=== PATIENT | female | born 1950 | race Caucasian/White ===

== ENCOUNTER 2019-02-22 10:50 | Emergency (ER) | payer MEDICAID, MEDICARE ==
[~2019-02-22] VITALS: Ht 170.2 cm; Wt 65.0 kg
[~2019-02-22 10:50] MED LIST: PENI500T2 PO
--- NOTE | 2019-02-22 11:16 | NUR ---
Patient in xray
[2019-02-22] MEDS ORDERED: ketorolac trometh inj. 60 MG/2 ML VIAL IM ONE (12:15)
[2019-02-22] MEDS ORDERED: morphine 4 MG/ML inj SYRINge IM ONE (12:15)
[2019-02-22] MEDS ORDERED: ondansetron 4mg rapidly disintigrating tab PO ONE (12:15)
--- NOTE | 2019-02-22 12:15 | NUR ---
Patient's family at bedside.
[2019-02-22 12:50] VITALS: BP 144/60
[2019-02-22] MEDS ORDERED: BISA-78 PO (13:38)
[2019-02-22] MEDS ORDERED: acetaminophen 325mg tablet PO ONE (13:40)
--- NOTE | 2019-02-22 13:49 | NUR ---
Patient sitting up in bed and and dressing by self.
== END 2019-02-22 13:54 | disposition home or self-care (01) ==
LOC: ER 10:51
DX: M25.552 Pain in left hip (principal); M25.551 Pain in right hip; R11.10 Vomiting, unspecified; G89.29 Other chronic pain; Z90.710 Acquired absence of both cervix and uterus; Z98.890 Other specified postprocedural states; Z88.2 Allergy status to sulfonamides; Z88.1 Allergy status to other antibiotic agents; Z88.8 Allergy status to other drugs, medicaments and biological substances; Z79.899 Other long term (current) drug therapy
CPT/HCPCS: 73502; 96372; 99284; J1885; J2270

== ENCOUNTER 2019-02-23 23:17 | Inpatient (IN) | payer MEDICARE ==
[~2019-02-23] VITALS: Ht 170.2 cm; Wt 65.0 kg
[~2019-02-23 23:17] MED LIST changes: +BISA-78 PO
[2019-02-24 00:36] LABS: BASOPHILS % (AUTO) 0.1 % (0-1); EOSINOPHILS % (AUTO) 0 % (0-6); HEMATOCRIT 44.1 % (35.0-45.0); HEMOGLOBIN 14.9 g/dl (12.0-16.0); LYMPHOCYTES # (AUTO) 0.4 X10'3 (1.1-4.8); LYMPHOCYTES % (AUTO) 3.1 % (21-51); MEAN CORPUSCULAR HEMOGLOBIN 30.5 PG (27.0-31.0); MEAN CORPUSCULAR HGB CONC 33.7 g/dL (33.0-36.5); MEAN CORPUSCULAR VOLUME 90.5 FL (78-98); MEAN PLATELET VOLUME 9.4 FL (7.4-10.4); MONOCYTES # (AUTO) 0.7 X10'3 (0-0.9); MONOCYTES % (AUTO) 5.4 % (2-12); NEUTROPHILS # (AUTO) 11.7 X10'3 (1.8-7.7); NEUTROPHILS % (AUTO) 91.4 % (42-75); PLATELET COUNT 115 X10'3 (140-440); RED BLOOD COUNT 4.87 X10'6 (4.20-5.60); RED CELL DISTRIBUTION WIDTH 13.7 % (11.5-14.5); WHITE BLOOD COUNT 12.8 X10'3 (4.5-11.0)
[2019-02-24 00:52] LABS: ALANINE AMINOTRANSFERASE 209 U/L (12-78); ALBUMIN 3.2 G/DL (3.4-5.0); ALBUMIN/GLOBULIN RATIO 0.8 (1.1-1.5); ALKALINE PHOSPHATASE 156 IU/L (46-116); ANION GAP 12 (8-16); ASPARTATE AMINO TRANSFERASE 125 U/L (10-37); BILIRUBIN,TOTAL 0.7 MG/DL (0.1-1.0); BLOOD UREA NITROGEN 26 MG/DL (7-18); BUN/CREATININE RATIO 20.6 (6.6-38.0); CALCIUM 9.3 MG/DL (8.5-10.1); CHLORIDE 101 MMOL/L (99-107); CREATININE 1.26 MG/DL (0.40-0.90); GLUCOSE 133 MG/DL (70-104); POTASSIUM 3.6 MMOL/L (3.5-5.1); SODIUM 140 MMOL/L (135-145); TOTAL CARBON DIOXIDE 27.4 MMOL/L (24-32); TOTAL PROTEIN 7.4 G/DL (6.4-8.2); eGFR 42 ML/MIN
[2019-02-24 00:53] LABS: CLARITY,URINE CLOUDY (Clear); GLUCOSE, URINE NEGATIVE (Neg); KETONES,URINE TRACE mg/dl (Neg); LEUKOCYTE ESTERASE ,URINE TRACE (Neg); NITRITES, URINE NEGATIVE (Neg); OCCULT BLOOD,URINE LARGE (Neg); PH,URINE 5.5 (4.8-8.0); PROTEIN,URINE 100 mg/dl (Neg)
[2019-02-24 00:58] LABS: URINE AMPHETAMINE SCREEN NEGATIVE (Neg); URINE BARBITUATE SCREEN NEGATIVE (Neg); URINE BENZODIAZEPINES SCREEN NEGATIVE (Neg); URINE CANNABINOID SCREEN NEGATIVE (Neg); URINE COCAINE SCREEN NEGATIVE (Neg); URINE METHADONE SCREEN NEGATIVE (Neg); URINE OPIATE SCREEN POSITIVE (Neg); URINE PHENCYCLIDINE SCREEN NEGATIVE (Neg)
[2019-02-24 01:01] LABS: ETHANOL < 0.010 GM/DL (0.0-0.010)
[2019-02-24 01:05] LABS: COLOR,URINE DARK YELLOW (Yellow); UA COLLECTION TYPE STRAIGHT CATH
[2019-02-24 01:07] LABS: CELLULAR CAST 0-4 /LPF (NEGATIVE)
[2019-02-24 01:08] LABS: AMORPHOUS URATES 3+
[2019-02-24 01:10] LABS: BACTERIA,URINE FEW /HPF (Neg); SQUAMOUS EPITHELIAL CELL,UR FEW /LPF (FEW); TRANSITIONAL EPI CELLS,URINE MANY /HPF
[2019-02-24] MEDS ORDERED: fentaNYL/PF 50MCG/1 ML 2ML syringe IV ONE (01:10)
[2019-02-24 01:13] LABS: RENAL CELLS, URINE FEW /HPF
[2019-02-24 01:14] LABS: FINE GRANULAR CAST 0-3 /LPF (NEGATIVE)
[2019-02-24] MEDS ORDERED: CefTRIAXone 2gm/D5W 50ml 50 ML IV ONE (01:25)
[2019-02-24] MEDS ORDERED: normal saline 1000ML IV soln IV ONE (01:25)
[2019-02-24] MEDS ORDERED: potassium Cl 20 mEq SR tablet PO PRN (01:40)
[2019-02-24] MEDS ORDERED: magnesium 4gm in 100ml NS 100 ML IV PRN (01:40)
[2019-02-24] MEDS ORDERED: acetaminophen 325mg tablet PO PRN ×2 (01:40)
[2019-02-24] MEDS ORDERED: magnesium hydroxide 30ml (MOM) UD suspension PO PRN (01:40)
[2019-02-24] MEDS ORDERED: magnesium Cl slow-release 64mg tablet PO PRN (01:40)
[2019-02-24] MEDS ORDERED: morphine 2 MG/ML inj. syringe IV PRN (01:40)
[2019-02-24] MEDS ORDERED: potassium CL 10mEq/100ml bag 100 ML IV PRN ×2 (01:40)
[2019-02-24] MEDS ORDERED: magnesium 2GM in 50ml NS 50 ML IV PRN (01:40)
[2019-02-24] MEDS ORDERED: mag hydrox/Alum hydrox/simeth 30ml oral suspension PO PRN (01:40)
[2019-02-24] MEDS ORDERED: CARV6.253 PO (02:38)
[2019-02-24] MEDS ORDERED: OMEP20TA5 PO (02:38)
[2019-02-24] MEDS ORDERED: LEVO88TA7 PO (02:38)
[2019-02-24] MEDS ORDERED: OXYC-658 PO (02:41)
[2019-02-24] MEDS ORDERED: PHE12.5R RC (02:41)
[2019-02-24] MEDS ORDERED: TIZA4CAP PO (02:41)
[2019-02-24] MEDS ORDERED: FENT1PAT10 TP (02:41)
[2019-02-24] MEDS ORDERED: KEN0.1O (02:41)
[2019-02-24] MEDS ORDERED: LUBI8CAP PO (02:42)
[2019-02-24] MEDS ORDERED: GABA-532 PO (02:43)
[2019-02-24 03:30] VITALS: BP 137/61
--- NOTE | 2019-02-24 04:10 | NUR ---
Received report from Kortney VALLADARES in the ED. Pt was transferred to ortho floor via gurney. pt appears to be painful
[2019-02-24] MEDS: morphine 2 MG/ML inj. syringe IV PRN ×3 (04:14→12:33)
[2019-02-24] MEDS ORDERED: ketorolac tromethamine 15mg/ml inj. IM PRN (04:35)
[2019-02-24] MEDS: normal saline 1000ml 1,000 ML IV SCH ×2 (04:45→16:59)
[2019-02-24 05:55] LABS: GLUCOSE 139 MG/DL (70-104); SODIUM 140 MMOL/L (135-145)
[2019-02-24 05:56] LABS: ALBUMIN 2.9 G/DL (3.4-5.0); ANION GAP 12 (8-16); BLOOD UREA NITROGEN 25 MG/DL (7-18); BUN/CREATININE RATIO 20.7 (6.6-38.0); CALCIUM 8.9 MG/DL (8.5-10.1); CHLORIDE 103 MMOL/L (99-107); CREATININE 1.21 MG/DL (0.40-0.90); POTASSIUM 3.8 MMOL/L (3.5-5.1); TOTAL CARBON DIOXIDE 25.2 MMOL/L (24-32); eGFR 44 ML/MIN
[2019-02-24 06:00] VITALS: BP 137/65
--- NOTE | 2019-02-24 06:00 | NUR ---
Patient in room ORTHO 4015. I have received report from KAY VALLADARES and had the opportunity to ask questions and assume patient care.
[2019-02-24] MEDS: K and/or MAG REPLACEMENT MC SCH (07:12)
[2019-02-24] MEDS: carvedilol 6.25mg tablet PO SCH (07:16)
[2019-02-24] MEDS: bisacodyl 5mg tablet.DR PO SCH (07:16)
[2019-02-24] MEDS: pantoprazole 40mg Tablet.DR PO SCH (07:16)
[2019-02-24] MEDS: lactobacillus rhamnosus 10,000 MMU CELLS/CAPSULE PO SCH ×2 (07:16→19:38)
[2019-02-24] MEDS: levoTHYROXINE 88mcg tablet PO SCH (07:17)
[2019-02-24] MEDS: enoxaparin 40mg/0.4ml syringe SQ SCH (07:17)
[2019-02-24] MEDS: CefTRIAXone 2gm/D5W 50ml 50 ML IV SCH (07:18)
[2019-02-24] MEDS: HYDROcodone/acetaminophen 5mg/325mg tablet PO PRN (07:18)
[2019-02-24] MEDS: gabapentin 300mg capsule PO SCH (07:19)
[2019-02-24] MEDS ORDERED: CefTRIAXone/D5W-Rocephin 1gm 50 ML IV SCH (08:00)
[2019-02-24] MEDS ORDERED: proMETHazine 12.5mg rectal suppository RC PRN (08:00)
[2019-02-24] MEDS ORDERED: oxyCODONE IR 5mg (immed. release) tablet PO SCH (08:00)
[2019-02-24] MEDS ORDERED: LUBIPROSTONE 8 MCG PO SCH (08:00)
[2019-02-24] MEDS: ondansetron/PF 4mg/2ml inj IV PRN ×2 (08:34→18:50)
[2019-02-24 09:45] LABS: BASOPHILS % (AUTO) 0.3 % (0-1); EOSINOPHILS % (AUTO) 0 % (0-6); HEMATOCRIT 40.7 % (35.0-45.0); HEMOGLOBIN 13.9 g/dl (12.0-16.0); LYMPHOCYTES # (AUTO) 0.4 X10'3 (1.1-4.8); LYMPHOCYTES % (AUTO) 2.8 % (21-51); MEAN CORPUSCULAR HEMOGLOBIN 31.1 PG (27.0-31.0); MEAN CORPUSCULAR HGB CONC 34.1 g/dL (33.0-36.5); MEAN CORPUSCULAR VOLUME 91.1 FL (78-98); MONOCYTES # (AUTO) 0.7 X10'3 (0-0.9); MONOCYTES % (AUTO) 5.7 % (2-12); NEUTROPHILS # (AUTO) 11.7 X10'3 (1.8-7.7); NEUTROPHILS % (AUTO) 91.2 % (42-75); PLATELET COUNT 92 X10'3 (140-440); RED BLOOD COUNT 4.47 X10'6 (4.20-5.60); WHITE BLOOD COUNT 12.8 X10'3 (4.5-11.0)
[2019-02-24 10:00] VITALS: BP 96/33
[2019-02-24] MEDS: ketorolac tromethamine 15mg/ml inj. IV PRN ×2 (12:32→18:46)
--- NOTE | 2019-02-24 16:05 | NUR ---
PAGER ID: [phone] MESSAGE: AMMY [id number] RE: ABBEY [id number] GRAM+ COCCI IN CLUSTERS BLOOD CULTURE, 12HRS, AEROBIC.
[2019-02-24] MEDS: vancomycin/NS 1 GM ADD-VANTAGE 250 ML IV SCH (16:59)
[2019-02-24 18:00] VITALS: BP 123/44
--- NOTE | 2019-02-24 18:20 | NUR ---
Problems reprioritized. Patient report given, questions answered & plan of care reviewed with MADDI VALLADARES.
--- NOTE | 2019-02-24 18:25 | NUR ---
Patient in room ORTHO 4015. I have received report from Joaquin VALLADARES and had the opportunity to ask questions and assume patient care.
[2019-02-24 22:00] VITALS: BP 118/52
[2019-02-24] MEDS: tizanidine 4mg tablet PO PRN (22:01)
[2019-02-25] MEDS: normal saline 1000ml 1,000 ML IV SCH ×3 (03:43→13:37)
[2019-02-25] MEDS: ketorolac tromethamine 15mg/ml inj. IV PRN ×2 (03:44→16:18)
[2019-02-25] MEDS: HYDROcodone/acetaminophen 5mg/325mg tablet PO PRN ×3 (04:26→13:34)
[2019-02-25 05:26] LABS: BASOPHILS % (AUTO) 0.1 % (0-1); EOSINOPHILS % (AUTO) 0 % (0-6); HEMATOCRIT 34.4 % (35.0-45.0); HEMOGLOBIN 11.9 g/dl (12.0-16.0); LYMPHOCYTES # (AUTO) 0.4 X10'3 (1.1-4.8); LYMPHOCYTES % (AUTO) 5.7 % (21-51); MEAN CORPUSCULAR HEMOGLOBIN 31.1 PG (27.0-31.0); MEAN CORPUSCULAR HGB CONC 34.5 g/dL (33.0-36.5); MEAN CORPUSCULAR VOLUME 90.1 FL (78-98); MEAN PLATELET VOLUME 10.1 FL (7.4-10.4); MONOCYTES # (AUTO) 0.4 X10'3 (0-0.9); MONOCYTES % (AUTO) 6.1 % (2-12); NEUTROPHILS # (AUTO) 5.9 X10'3 (1.8-7.7); NEUTROPHILS % (AUTO) 88.1 % (42-75); PLATELET COUNT 89 X10'3 (140-440); RED BLOOD COUNT 3.82 X10'6 (4.20-5.60); WHITE BLOOD COUNT 6.7 X10'3 (4.5-11.0)
[2019-02-25 05:39] LABS: ALBUMIN 2.1 G/DL (3.4-5.0); ANION GAP 10 (8-16); BLOOD UREA NITROGEN 30 MG/DL (7-18); BUN/CREATININE RATIO 26.3 (6.6-38.0); CALCIUM 7.9 MG/DL (8.5-10.1); CHLORIDE 106 MMOL/L (99-107); CREATININE 1.14 MG/DL (0.40-0.90); GLUCOSE 117 MG/DL (70-104); MAGNESIUM 1.7 MG/DL (1.5-2.4); POTASSIUM 3.2 MMOL/L (3.5-5.1); SODIUM 139 MMOL/L (135-145); TOTAL CARBON DIOXIDE 22.6 MMOL/L (24-32); eGFR 47 ML/MIN
[2019-02-25] MEDS: potassium Cl 20 mEq SR tablet PO PRN ×3 (05:49→13:34)
[2019-02-25] MEDS: morphine 2 MG/ML inj. syringe IV PRN ×2 (05:50→22:31)
[2019-02-25 06:00] VITALS: BP 140/55
--- NOTE | 2019-02-25 06:32 | NUR ---
Problems reprioritized. Patient report given, questions answered & plan of care reviewed with Christianne VALLADARES.
[2019-02-25 06:54] LABS: TOTAL CELLS COUNTED 100
[2019-02-25 06:55] LABS: PLATELET ESTIMATE DECREASED; TOXIC GRANULATION 1+
[2019-02-25] MEDS: pantoprazole 40mg Tablet.DR PO SCH (07:30)
[2019-02-25] MEDS: K and/or MAG REPLACEMENT MC SCH (08:00)
[2019-02-25] MEDS: enoxaparin 40mg/0.4ml syringe SQ SCH (08:00)
[2019-02-25] MEDS: lactobacillus rhamnosus 10,000 MMU CELLS/CAPSULE PO SCH ×2 (08:58→19:42)
[2019-02-25] MEDS: bisacodyl 5mg tablet.DR PO SCH (08:58)
[2019-02-25] MEDS: tizanidine 4mg tablet PO PRN (08:58)
[2019-02-25] MEDS: CefTRIAXone 2gm/D5W 50ml 50 ML IV SCH (08:59)
[2019-02-25] MEDS: gabapentin 300mg capsule PO SCH (08:59)
[2019-02-25] MEDS: levoTHYROXINE 88mcg tablet PO SCH (08:59)
[2019-02-25] MEDS: carvedilol 6.25mg tablet PO SCH (08:59)
[2019-02-25] MEDS: ondansetron/PF 4mg/2ml inj IV PRN ×2 (09:07→16:18)
[2019-02-25 10:00] VITALS: BP 98/43
--- NOTE | 2019-02-25 13:32 | NUR ---
syl to hold lovenox per Dr. Zimmer
[2019-02-25] MEDS: vancomycin/NS 1 GM ADD-VANTAGE 250 ML IV SCH (17:52)
[2019-02-25 18:00] VITALS: BP 104/47
--- NOTE | 2019-02-25 18:00 | NUR ---
RECEIVED REPORT FROM LUIS VALLADARES AND ASSUMED PATIENT CARE
--- NOTE | 2019-02-25 18:20 | NUR ---
Problems reprioritized. Patient report given, questions answered & plan of care reviewed with THALIA VALLADARES.
--- NOTE | 2019-02-25 18:30 | NUR ---
Patient in room ORTHO 4015. I have received report from JACQUELYN Peter- Preceptor and had the opportunity to ask questions and assume patient care. Addendum: 02/26/19 at 0323 by Loraine Galarza RN Amended: Links added.
--- NOTE | 2019-02-25 18:30 | NUR ---
Patient in room ORTHO 4015. I have received report from Brittani RN-preceptor and had the opportunity to ask questions and assume patient care.
--- NOTE | 2019-02-25 18:30 | NUR ---
Patient in room ORTHO 4015. I have received report from JACQUELYN Peter- preceptor and had the opportunity to ask questions and assume patient care. Addendum: 02/26/19 at 0322 by Loraine Galarza RN Amended: Links added.
[2019-02-25 22:00] VITALS: BP 135/70
[2019-02-26] MEDS: ketorolac tromethamine 15mg/ml inj. IV PRN ×3 (00:28→19:47)
[2019-02-26] MEDS: ondansetron/PF 4mg/2ml inj IV PRN ×2 (00:32→08:03)
[2019-02-26 06:00] VITALS: BP 141/55
[2019-02-26 06:18] LABS: BASOPHILS % (AUTO) 0.3 % (0-1); EOSINOPHILS % (AUTO) 0.1 % (0-6); HEMATOCRIT 33.9 % (35.0-45.0); HEMOGLOBIN 11.6 g/dl (12.0-16.0); LYMPHOCYTES # (AUTO) 0.6 X10'3 (1.1-4.8); MEAN CORPUSCULAR HEMOGLOBIN 31.1 PG (27.0-31.0); MEAN CORPUSCULAR HGB CONC 34.2 g/dL (33.0-36.5); MEAN CORPUSCULAR VOLUME 90.8 FL (78-98); MEAN PLATELET VOLUME 9.8 FL (7.4-10.4); MONOCYTES # (AUTO) 0.5 X10'3 (0-0.9); MONOCYTES % (AUTO) 7.1 % (2-12); NEUTROPHILS # (AUTO) 5.6 X10'3 (1.8-7.7); NEUTROPHILS % (AUTO) 83.5 % (42-75); PLATELET COUNT 88 X10'3 (140-440); RED BLOOD COUNT 3.73 X10'6 (4.20-5.60); RED CELL DISTRIBUTION WIDTH 14.2 % (11.5-14.5); WHITE BLOOD COUNT 6.7 X10'3 (4.5-11.0)
[2019-02-26 06:30] LABS: ALBUMIN 1.9 G/DL (3.4-5.0); ANION GAP 7 (8-16); BLOOD UREA NITROGEN 21 MG/DL (7-18); BUN/CREATININE RATIO 22.8 (6.6-38.0); CALCIUM 8.4 MG/DL (8.5-10.1); CHLORIDE 108 MMOL/L (99-107); CREATININE 0.92 MG/DL (0.40-0.90); GLUCOSE 96 MG/DL (70-104); MAGNESIUM 1.6 MG/DL (1.5-2.4); POTASSIUM 4.3 MMOL/L (3.5-5.1); SODIUM 139 MMOL/L (135-145); TOTAL CARBON DIOXIDE 24.1 MMOL/L (24-32); eGFR 61 ML/MIN
[2019-02-26 06:38] LABS: PLATELET ESTIMATE DECREASED
[2019-02-26] MEDS: pantoprazole 40mg Tablet.DR PO SCH (06:54)
[2019-02-26] MEDS: K and/or MAG REPLACEMENT MC SCH (07:51)
[2019-02-26] MEDS: enoxaparin 40mg/0.4ml syringe SQ SCH (08:00)
[2019-02-26] MEDS: bisacodyl 5mg tablet.DR PO SCH (08:04)
[2019-02-26] MEDS: HYDROcodone/acetaminophen 5mg/325mg tablet PO PRN (08:04)
[2019-02-26] MEDS: lactobacillus rhamnosus 10,000 MMU CELLS/CAPSULE PO SCH ×2 (08:04→19:46)
[2019-02-26] MEDS: carvedilol 6.25mg tablet PO SCH (08:04)
[2019-02-26] MEDS: tizanidine 4mg tablet PO PRN ×2 (08:04→19:46)
[2019-02-26] MEDS: CefTRIAXone 2gm/D5W 50ml 50 ML IV SCH (08:04)
[2019-02-26] MEDS: levoTHYROXINE 88mcg tablet PO SCH (08:05)
[2019-02-26] MEDS: gabapentin 300mg capsule PO SCH (08:05)
--- NOTE | 2019-02-26 08:33 | NUR ---
PAGER ID: [phone] MESSAGE: [id number] Glory Joseph Patients Blood Cultures came back SONDRA Faust [phone]
[2019-02-26 10:08] VITALS: BP 121/76
--- NOTE | 2019-02-26 11:18 | NUR ---
Patients' pain always a 7/10 and crying. I asked patient if she has depression, she stated no but has been prescribed Effexor and it didn't help. ordered patient Ativan for anxiety, due to excessive crying.
[2019-02-26] MEDS ORDERED: LORazepam 1 MG tablet PO PRN (11:20)
--- NOTE | 2019-02-26 13:50 | NUR ---
Problems reprioritized. Patient report given, questions answered & plan of care reviewed with Milena VALLADARES.
--- NOTE | 2019-02-26 16:21 | NUR ---
dental technician metal at bedside.
[2019-02-26 16:37] VITALS: BP 116/68
--- NOTE | 2019-02-26 17:20 | NUR ---
PAGER ID: [phone] MESSAGE: [id number] Glory POTTER did you realize no C&S done on that +urine? [id number] Milena
[2019-02-26] MEDS: vancomycin/NS 1 GM ADD-VANTAGE 250 ML IV SCH (17:36)
--- NOTE | 2019-02-26 17:50 | NUR ---
Patient states she recently relocated here. 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 She will have her son bring in the most recent "heart test" done there.
--- NOTE | 2019-02-26 18:09 | NUR ---
RECEIVED REPORT FROM ENA VALLADARES AND ASSUMED PATIENT CARE
[2019-02-26 18:10] VITALS: BP 135/78
[2019-02-26 22:04] VITALS: BP 121/55
[2019-02-27] MEDS: HYDROcodone/acetaminophen 5mg/325mg tablet PO PRN ×3 (01:01→22:24)
[2019-02-27] MEDS: ondansetron/PF 4mg/2ml inj IV PRN ×2 (01:02→02:06)
[2019-02-27] MEDS: fentaNYL 50MCG/HOUR patch.TD72 TD SCH ×2 (02:01→17:13)
--- NOTE | 2019-02-27 02:09 | NUR ---
PATIENT STATES HER FENTANYL PATCH WAS PLACED AT HOME PRIOR TO HER COMING IN ON 02/23 AT 1400. SAYS SHE IS OVER DUE FOR NEW PATCH AND IF SHE DOES NOT GET IT SHE WILL START GOING INTO WITHDRAWS. NOTIFIED DR. CHARLTON WHO OK'D GIVING HER 0800 PATCH NOW. PHARMACY ALSO NOTIFIED.
[2019-02-27] MEDS: tizanidine 4mg tablet PO PRN ×3 (02:29→23:30)
[2019-02-27] MEDS: ketorolac tromethamine 15mg/ml inj. IV PRN ×4 (02:29→23:30)
[2019-02-27 06:00] VITALS: BP 111/51
[2019-02-27 06:07] LABS: ALBUMIN 1.7 G/DL (3.4-5.0); ANION GAP 8 (8-16); BLOOD UREA NITROGEN 20 MG/DL (7-18); BUN/CREATININE RATIO 24.4 (6.6-38.0); CALCIUM 8.4 MG/DL (8.5-10.1); CHLORIDE 108 MMOL/L (99-107); CREATININE 0.82 MG/DL (0.40-0.90); GLUCOSE 118 MG/DL (70-104); MAGNESIUM 1.8 MG/DL (1.5-2.4); POTASSIUM 3.6 MMOL/L (3.5-5.1); SODIUM 142 MMOL/L (135-145); TOTAL CARBON DIOXIDE 26.5 MMOL/L (24-32); eGFR 69 ML/MIN
[2019-02-27 06:08] LABS: BASOPHILS % (AUTO) 0.2 % (0-1); EOSINOPHILS % (AUTO) 0.3 % (0-6); HEMATOCRIT 33.2 % (35.0-45.0); HEMOGLOBIN 11.5 g/dl (12.0-16.0); LYMPHOCYTES % (AUTO) 12.5 % (21-51); MEAN CORPUSCULAR HEMOGLOBIN 30.7 PG (27.0-31.0); MEAN CORPUSCULAR HGB CONC 34.5 g/dL (33.0-36.5); MEAN CORPUSCULAR VOLUME 88.9 FL (78-98); MEAN PLATELET VOLUME 9.5 FL (7.4-10.4); MONOCYTES # (AUTO) 0.6 X10'3 (0-0.9); MONOCYTES % (AUTO) 7.8 % (2-12); NEUTROPHILS # (AUTO) 6.3 X10'3 (1.8-7.7); NEUTROPHILS % (AUTO) 79.2 % (42-75); PLATELET COUNT 108 X10'3 (140-440); RED BLOOD COUNT 3.73 X10'6 (4.20-5.60); RED CELL DISTRIBUTION WIDTH 14.2 % (11.5-14.5); WHITE BLOOD COUNT 7.9 X10'3 (4.5-11.0)
--- NOTE | 2019-02-27 06:12 | NUR ---
REPORT GIVEN TO ELIZABETH VALLADARES
[2019-02-27] MEDS: enoxaparin 40mg/0.4ml syringe SQ SCH (08:00)
[2019-02-27] MEDS: K and/or MAG REPLACEMENT MC SCH (08:00)
[2019-02-27] MEDS: gabapentin 300mg capsule PO SCH (08:00)
[2019-02-27] MEDS: CefTRIAXone 2gm/D5W 50ml 50 ML IV SCH (08:52)
[2019-02-27] MEDS: carvedilol 6.25mg tablet PO SCH (08:54)
[2019-02-27] MEDS: lactobacillus rhamnosus 10,000 MMU CELLS/CAPSULE PO SCH ×2 (08:54→20:08)
[2019-02-27] MEDS: pantoprazole 40mg Tablet.DR PO SCH (08:55)
[2019-02-27] MEDS: bisacodyl 5mg tablet.DR PO SCH (08:55)
[2019-02-27] MEDS: levoTHYROXINE 88mcg tablet PO SCH (08:55)
[2019-02-27 10:00] VITALS: BP 146/67
[2019-02-27] MEDS ORDERED: normal saline 1000ml 1,000 ML IV ONE (13:15)
[2019-02-27] MEDS ORDERED: VANCOMYCIN LEVEL IV ONE (16:30)
[2019-02-27] MEDS: vancomycin/NS 1 GM ADD-VANTAGE 250 ML IV SCH (16:57)
[2019-02-27 18:00] VITALS: BP 153/75
--- NOTE | 2019-02-27 18:15 | NUR ---
Received report from Cheryl VALLADARES. Assumed care of patient.
[2019-02-27 22:00] VITALS: BP 146/87
[2019-02-28] MEDS: HYDROcodone/acetaminophen 5mg/325mg tablet PO PRN (05:20)
[2019-02-28] MEDS: ondansetron/PF 4mg/2ml inj IV PRN (05:20)
[2019-02-28 05:49] LABS: BASOPHILS % (AUTO) 0.3 % (0-1); EOSINOPHILS % (AUTO) 0.4 % (0-6); LYMPHOCYTES # (AUTO) 1.1 X10'3 (1.1-4.8); LYMPHOCYTES % (AUTO) 11.5 % (21-51); MEAN CORPUSCULAR HEMOGLOBIN 30.9 PG (27.0-31.0); MEAN CORPUSCULAR HGB CONC 34.2 g/dL (33.0-36.5); MEAN CORPUSCULAR VOLUME 90.3 FL (78-98); MEAN PLATELET VOLUME 9.7 FL (7.4-10.4); MONOCYTES # (AUTO) 0.7 X10'3 (0-0.9); MONOCYTES % (AUTO) 7.3 % (2-12); NEUTROPHILS # (AUTO) 7.8 X10'3 (1.8-7.7); NEUTROPHILS % (AUTO) 80.5 % (42-75); PLATELET COUNT 127 X10'3 (140-440); RED BLOOD COUNT 3.88 X10'6 (4.20-5.60); RED CELL DISTRIBUTION WIDTH 14.2 % (11.5-14.5); WHITE BLOOD COUNT 9.6 X10'3 (4.5-11.0)
[2019-02-28 05:54] LABS: ALBUMIN 2.1 G/DL (3.4-5.0); ANION GAP 8 (8-16); BLOOD UREA NITROGEN 19 MG/DL (7-18); BUN/CREATININE RATIO 22.1 (6.6-38.0); CALCIUM 8.7 MG/DL (8.5-10.1); CHLORIDE 107 MMOL/L (99-107); CREATININE 0.86 MG/DL (0.40-0.90); GLUCOSE 91 MG/DL (70-104); MAGNESIUM 1.8 MG/DL (1.5-2.4); POTASSIUM 3.6 MMOL/L (3.5-5.1); SODIUM 142 MMOL/L (135-145); TOTAL CARBON DIOXIDE 27.1 MMOL/L (24-32); eGFR 65 ML/MIN
[2019-02-28 06:00] VITALS: BP 144/101
--- NOTE | 2019-02-28 06:25 | NUR ---
Report given to Tonya VALLADARES.
--- NOTE | 2019-02-28 06:37 | NUR ---
Patient in room ORTHO 4015. I have received report from Parul VALLADARES and had the opportunity to ask questions and assume patient care.
[2019-02-28] MEDS: ketorolac tromethamine 15mg/ml inj. IV PRN (06:50)
[2019-02-28] MEDS: carvedilol 6.25mg tablet PO SCH (07:13)
[2019-02-28] MEDS: gabapentin 300mg capsule PO SCH (08:00)
[2019-02-28] MEDS: K and/or MAG REPLACEMENT MC SCH (08:00)
[2019-02-28] MEDS: enoxaparin 40mg/0.4ml syringe SQ SCH (08:30)
[2019-02-28] MEDS: lactobacillus rhamnosus 10,000 MMU CELLS/CAPSULE PO SCH ×2 (08:31→19:05)
[2019-02-28] MEDS: levoTHYROXINE 88mcg tablet PO SCH (08:31)
[2019-02-28] MEDS: pantoprazole 40mg Tablet.DR PO SCH (08:31)
[2019-02-28] MEDS: bisacodyl 5mg tablet.DR PO SCH (08:31)
[2019-02-28 10:00] VITALS: BP 150/82
[2019-02-28] MEDS: vancomycin/NS 1 GM ADD-VANTAGE 250 ML IV SCH ×2 (10:51→19:11)
[2019-02-28] MEDS: fentaNYL 75 MCG/hour patch.TD72 TD SCH (13:00)
[2019-02-28] MEDS: morphine 2 MG/ML inj. syringe IV PRN (16:36)
[2019-02-28 18:00] VITALS: BP 144/71
--- NOTE | 2019-02-28 18:24 | NUR ---
Problems reprioritized. Patient report given, questions answered & plan of care reviewed with Delisa VALLADARES.
--- NOTE | 2019-02-28 18:57 | NUR ---
Informed Dr. Morataya Commercial Loan Collection Officer Estefany reported heart rhythm is junctional tach and heart rate has been in 140-150's all day.
[2019-03-01] VITALS (7 sets, daily range): BP systolic 121–155; BP diastolic 44–88
[2019-03-01] MEDS ORDERED: metoprolol tartrate 1mg/ml inj IV PRN (00:55)
--- NOTE | 2019-03-01 00:56 | NUR ---
PER TELE PATIENT HAS NEW ONSET A-FIB. EKG DONE SHOWING SINUS TACH WITH PREMATURE SUPRAVENTRICULAR COMPLEXES. HR 121 BP 155/88. PATIENT HAD TELEMETRY MONITORING 22/10/17 WHICH SHOWED SYMPTOMATIC SUPRAVENTRICULAR TACHYCARDIA BUT NO A-FIB. DR. JUSTYNA AJ, ORDERED ONE DOSE IV METOPROLOL.
--- NOTE | 2019-03-01 01:15 | NUR ---
DR. JANSEN IN TO SEE PATIENT. PER CHARGE RN PATIENTS HEART RATE IS BETWEEN 115 AND 40'S. ORDERS RECEIVED FOR TRANSFER TO TELE UNIT. NURSING PRODUCTION MACHINE OPERATOR NOTIFIED. AWAITING BED.
--- NOTE | 2019-03-01 02:28 | NUR ---
FOLLOW UP CALL PLACED TO NURSING SHIPBUILDING DRAFTSPERSON FOR NEW BED ASSIGNMENT. PATIENT BEING TRANSFERRED TO ROOM 3022A.
--- NOTE | 2019-03-01 02:53 | NUR ---
PATIENT TRANSFERRED TO ROOM 3022A IN STABLE CONDITION WITH ALL BELONGINGS
--- NOTE | 2019-03-01 03:00 | NUR ---
Patient arrived at the PCU, from the Ortho unit, with cardiac rhythm NSR, A-fib, and tachy. Her VS upon arrival are: Temp: 99.4, BP: 134/44; HR: 90; SPO2: 94 % RA; pain 7/10. Pt dx is UTI and her four blood cultures has been positive. After blood cultures clear, pt will get a PICC line and would be treated with antibiotics for six weeks. Presently, pt is in MRSA / contact precautions.
[2019-03-01 05:02] LABS: BASOPHILS % (AUTO) 0.2 % (0-1); EOSINOPHILS % (AUTO) 0.1 % (0-6); HEMATOCRIT 33.5 % (35.0-45.0); HEMOGLOBIN 11.7 g/dl (12.0-16.0); LYMPHOCYTES # (AUTO) 1.2 X10'3 (1.1-4.8); LYMPHOCYTES % (AUTO) 10.5 % (21-51); MEAN CORPUSCULAR HEMOGLOBIN 30.9 PG (27.0-31.0); MEAN CORPUSCULAR HGB CONC 34.8 g/dL (33.0-36.5); MEAN CORPUSCULAR VOLUME 88.7 FL (78-98); MEAN PLATELET VOLUME 9.2 FL (7.4-10.4); MONOCYTES # (AUTO) 0.9 X10'3 (0-0.9); MONOCYTES % (AUTO) 8.4 % (2-12); NEUTROPHILS % (AUTO) 80.8 % (42-75); PLATELET COUNT 156 X10'3 (140-440); RED BLOOD COUNT 3.78 X10'6 (4.20-5.60); RED CELL DISTRIBUTION WIDTH 13.6 % (11.5-14.5); WHITE BLOOD COUNT 11.1 X10'3 (4.5-11.0)
[2019-03-01] MEDS: morphine 2 MG/ML inj. syringe IV PRN ×2 (05:14→20:08)
[2019-03-01 05:29] LABS: ANION GAP 10 (8-16); BLOOD UREA NITROGEN 14 MG/DL (7-18); BUN/CREATININE RATIO 17.9 (6.6-38.0); CALCIUM 8.4 MG/DL (8.5-10.1); CHLORIDE 105 MMOL/L (99-107); CREATININE 0.78 MG/DL (0.40-0.90); GLUCOSE 99 MG/DL (70-104); MAGNESIUM 1.7 MG/DL (1.5-2.4); POTASSIUM 3.1 MMOL/L (3.5-5.1); SODIUM 143 MMOL/L (135-145); TOTAL CARBON DIOXIDE 28.2 MMOL/L (24-32); eGFR 73 ML/MIN
--- NOTE | 2019-03-01 06:31 | NUR ---
Problems reprioritized. Patient report given, questions answered & plan of care reviewed with JACQUELYN Dupont . Pt stable at shift change
--- NOTE | 2019-03-01 07:03 | NUR ---
Patient in room PCU 3022. I have received report from José VALLADARES and had the opportunity to ask questions and assume patient care.
[2019-03-01] MEDS: K and/or MAG REPLACEMENT MC SCH (08:00)
[2019-03-01] MEDS: levoTHYROXINE 88mcg tablet PO SCH (08:53)
[2019-03-01] MEDS: lactobacillus rhamnosus 10,000 MMU CELLS/CAPSULE PO SCH ×2 (08:53→20:09)
[2019-03-01] MEDS: ondansetron/PF 4mg/2ml inj IV PRN ×2 (08:53→20:09)
[2019-03-01] MEDS: enoxaparin 40mg/0.4ml syringe SQ SCH (08:54)
[2019-03-01] MEDS: pantoprazole 40mg Tablet.DR PO SCH (08:54)
[2019-03-01] MEDS: bisacodyl 5mg tablet.DR PO SCH (08:54)
[2019-03-01] MEDS: gabapentin 300mg capsule PO SCH (08:54)
[2019-03-01] MEDS: carvedilol 6.25mg tablet PO SCH ×2 (08:54→20:09)
[2019-03-01] MEDS: vancomycin/NS 1 GM ADD-VANTAGE 250 ML IV SCH ×2 (08:55→20:09)
--- NOTE | 2019-03-01 09:00 | NUR ---
When informing patient of medications to be given on morning medpass, patient refused gabapentin stating that she has a reaction to it. Gabapentin was scanned in eMAR, but held on medication administration per patient refusal.
--- NOTE | 2019-03-01 09:32 | NUR ---
Paged regarding episodes of sinus tach. PAGER ID: [phone] MESSAGE: [phone], Beka Joseph Had two episodes of sinus tach. in the 150s sustained for about 10secs each, then back to sinus rhythm. Michael House [facility] [id number]
--- NOTE | 2019-03-01 11:08 | NUR ---
PAGER ID: [phone] MESSAGE: JACQUELYN Quiñones, ext [phone], Venus Joseph 3.1, no replacement protocol ordered, can I put it in?
--- NOTE | 2019-03-01 11:19 | NUR ---
Problems reprioritized. Patient report given, questions answered & plan of care reviewed with Nuria VALLADARES.
[2019-03-01] MEDS ORDERED: potassium Cl 20 mEq SR tablet PO PRN (11:20)
[2019-03-01] MEDS ORDERED: potassium CL 10mEq/100ml bag 100 ML IV PRN (11:20)
[2019-03-01] MEDS ORDERED: magnesium 4gm in 100ml NS 100 ML IV PRN (11:20)
[2019-03-01] MEDS: potassium Cl 20 mEq SR tablet PO PRN ×3 (11:26→20:08)
--- NOTE | 2019-03-01 13:01 | NUR ---
Initial: Pt admit w/ bacteremia and sepsis secondary to L sacroiliac hip joint per MD. PO initially 75-100% now decreased to 25%/refusing past 2.5 days not meeting needs. Pt seen by RD for written/verbal high protein ed w/ RD contact information provided. Pt reports was receiving norco past 2 days which caused her 'stomach to burn w/ PO'; norco now d/c'd. Pt reports also hx hiatal hernia repair and does not eat large portions at home. Pt was agreeable to chocolate/strawberry ensure enlives BIDLD; MD notified and pt aware pending MD verification prior to sending on trays. Pt agrees to cottage cheese and fruit w/ breakfast and requests soft to chew foods; dietary notified. [facility] 02/27. Will continue to monitor. Rec: 1. continue regular diet; soft to chew foods 2. chocolate/strawberry ensure enlive BIDLD; pending MD verification prior to sending on trays; cottage cheese and fruit w/ breakfasts 3. monitor for additional protein needs 4. routine bowel care on opiates 5. wt per rx Addendum: 03/01/19 at [address] Amended: Links added.
[2019-03-01] MEDS: lactose-reduced food (Ensure Enlive) - 237ml bottle PO SCH (17:30)
--- NOTE | 2019-03-01 18:27 | NUR ---
Problems reprioritized. Patient report given, questions answered & plan of care reviewed with JACQUELYN Kumar.
--- NOTE | 2019-03-01 18:30 | NUR ---
Patient in room PCU 3022. I have received report from JACQUELYN Quiñones and had the opportunity to ask questions and assume patient care.
[2019-03-01] MEDS ORDERED: VANCOMYCIN LEVEL IV ONE (19:30)
[2019-03-02 03:00] VITALS: BP 138/67
[2019-03-02] MEDS: morphine 2 MG/ML inj. syringe IV PRN ×3 (04:52→16:58)
[2019-03-02 06:00] VITALS: BP 134/63
--- NOTE | 2019-03-02 06:05 | NUR ---
Patient in room PCU 3022. I have received report from JACQUELYN Kumar and had the opportunity to ask questions and assume patient care.
--- NOTE | 2019-03-02 06:16 | NUR ---
Problems reprioritized. Patient report given, questions answered & plan of care reviewed with JACQUELYN Faust. Pt stable at shift change
[2019-03-02] MEDS: gabapentin 300mg capsule PO SCH (07:45)
[2019-03-02] MEDS: pantoprazole 40mg Tablet.DR PO SCH (07:45)
[2019-03-02] MEDS: bisacodyl 5mg tablet.DR PO SCH (07:45)
[2019-03-02] MEDS: vancomycin/NS 1 GM ADD-VANTAGE 250 ML IV SCH (07:45)
[2019-03-02] MEDS: carvedilol 6.25mg tablet PO SCH ×2 (07:45→20:24)
[2019-03-02] MEDS: lactobacillus rhamnosus 10,000 MMU CELLS/CAPSULE PO SCH ×2 (07:45→20:24)
[2019-03-02] MEDS: enoxaparin 40mg/0.4ml syringe SQ SCH (07:46)
[2019-03-02] MEDS: K and/or MAG REPLACEMENT MC SCH (08:00)
[2019-03-02 09:43] LABS: BASOPHILS % (AUTO) 0.4 % (0-1); EOSINOPHILS # (AUTO) 0.1 X10'3 (0-0.9); HEMATOCRIT 33.1 % (35.0-45.0); HEMOGLOBIN 11.2 g/dl (12.0-16.0); LYMPHOCYTES # (AUTO) 1.1 X10'3 (1.1-4.8); MEAN CORPUSCULAR HEMOGLOBIN 30.7 PG (27.0-31.0); MEAN CORPUSCULAR HGB CONC 33.8 g/dL (33.0-36.5); MEAN CORPUSCULAR VOLUME 90.9 FL (78-98); MEAN PLATELET VOLUME 9.4 FL (7.4-10.4); MONOCYTES # (AUTO) 0.6 X10'3 (0-0.9); MONOCYTES % (AUTO) 6.7 % (2-12); NEUTROPHILS # (AUTO) 6.7 X10'3 (1.8-7.7); NEUTROPHILS % (AUTO) 78.9 % (42-75); PLATELET COUNT 160 X10'3 (140-440); RED BLOOD COUNT 3.64 X10'6 (4.20-5.60); RED CELL DISTRIBUTION WIDTH 14.3 % (11.5-14.5); WHITE BLOOD COUNT 8.5 X10'3 (4.5-11.0)
[2019-03-02 09:57] LABS: ALANINE AMINOTRANSFERASE 35 U/L (12-78); ALBUMIN/GLOBULIN RATIO 0.5 (1.1-1.5); ALKALINE PHOSPHATASE 100 IU/L (46-116); ANION GAP 7 (8-16); ASPARTATE AMINO TRANSFERASE 34 U/L (10-37); BILIRUBIN,TOTAL 0.5 MG/DL (0.1-1.0); BLOOD UREA NITROGEN 12 MG/DL (7-18); BUN/CREATININE RATIO 17.9 (6.6-38.0); CALCIUM 8.9 MG/DL (8.5-10.1); CHLORIDE 106 MMOL/L (99-107); CREATININE 0.67 MG/DL (0.40-0.90); GLUCOSE 103 MG/DL (70-104); POTASSIUM 3.8 MMOL/L (3.5-5.1); SODIUM 141 MMOL/L (135-145); TOTAL CARBON DIOXIDE 27.8 MMOL/L (24-32); eGFR 87 ML/MIN
[2019-03-02 11:00] VITALS: BP 129/74
[2019-03-02] MEDS: ondansetron/PF 4mg/2ml inj IV PRN (11:04)
[2019-03-02] MEDS: levoTHYROXINE 88mcg tablet PO SCH (11:04)
[2019-03-02] MEDS: lactose-reduced food (Ensure Enlive) - 237ml bottle PO SCH ×2 (12:42→17:49)
[2019-03-02 15:00] VITALS: BP 138/67
--- NOTE | 2019-03-02 15:09 | NUR ---
Patient in room PCU 3022. I have received report from Christianne VALLADARES and had the opportunity to ask questions and assume patient care.
--- NOTE | 2019-03-02 15:10 | NUR ---
Problems reprioritized. Patient report given, questions answered & plan of care reviewed with JACQUELYN Dugan.
[2019-03-02 18:00] VITALS: BP 155/56
--- NOTE | 2019-03-02 18:30 | NUR ---
Problems reprioritized. Patient report given, questions answered & plan of care reviewed with Minna VALLADARES.
[2019-03-02 22:00] VITALS: BP 136/60
[2019-03-03 02:00] VITALS: BP 147/69
[2019-03-03] MEDS: morphine 2 MG/ML inj. syringe IV PRN ×3 (02:16→15:15)
[2019-03-03] MEDS: ondansetron/PF 4mg/2ml inj IV PRN (02:25)
[2019-03-03 06:00] VITALS: BP 159/74
--- NOTE | 2019-03-03 06:22 | NUR ---
Patient in room PCU 3022. I have received report from JACQUELYN Buitrago and had the opportunity to ask questions and assume patient care.
[2019-03-03 06:56] LABS: BASOPHILS % (AUTO) 0.3 % (0-1); EOSINOPHILS # (AUTO) 0.1 X10'3 (0-0.9); EOSINOPHILS % (AUTO) 1.3 % (0-6); HEMATOCRIT 31.5 % (35.0-45.0); HEMOGLOBIN 11.1 g/dl (12.0-16.0); LYMPHOCYTES # (AUTO) 1.4 X10'3 (1.1-4.8); LYMPHOCYTES % (AUTO) 16.2 % (21-51); MEAN CORPUSCULAR HEMOGLOBIN 31.2 PG (27.0-31.0); MEAN CORPUSCULAR HGB CONC 35.2 g/dL (33.0-36.5); MEAN CORPUSCULAR VOLUME 88.6 FL (78-98); MEAN PLATELET VOLUME 8.6 FL (7.4-10.4); MONOCYTES # (AUTO) 0.6 X10'3 (0-0.9); MONOCYTES % (AUTO) 7.3 % (2-12); NEUTROPHILS # (AUTO) 6.3 X10'3 (1.8-7.7); NEUTROPHILS % (AUTO) 74.9 % (42-75); PLATELET COUNT 247 X10'3 (140-440); RED BLOOD COUNT 3.55 X10'6 (4.20-5.60); RED CELL DISTRIBUTION WIDTH 14.1 % (11.5-14.5); WHITE BLOOD COUNT 8.4 X10'3 (4.5-11.0)
[2019-03-03 07:18] LABS: ALANINE AMINOTRANSFERASE 28 U/L (12-78); ALBUMIN 1.9 G/DL (3.4-5.0); ALBUMIN/GLOBULIN RATIO 0.5 (1.1-1.5); ALKALINE PHOSPHATASE 98 IU/L (46-116); ANION GAP 7 (8-16); ASPARTATE AMINO TRANSFERASE 28 U/L (10-37); BILIRUBIN,TOTAL 0.4 MG/DL (0.1-1.0); BLOOD UREA NITROGEN 11 MG/DL (7-18); BUN/CREATININE RATIO 15.5 (6.6-38.0); CALCIUM 8.7 MG/DL (8.5-10.1); CHLORIDE 103 MMOL/L (99-107); CREATININE 0.71 MG/DL (0.40-0.90); GLUCOSE 100 MG/DL (70-104); POTASSIUM 3.8 MMOL/L (3.5-5.1); SODIUM 142 MMOL/L (135-145); TOTAL CARBON DIOXIDE 31.7 MMOL/L (24-32); TOTAL PROTEIN 5.8 G/DL (6.4-8.2); eGFR 82 ML/MIN
[2019-03-03] MEDS ORDERED: VANCOMYCIN LEVEL IV ONE (07:30)
[2019-03-03] MEDS: bisacodyl 5mg tablet.DR PO SCH ×2 (07:36→19:59)
[2019-03-03] MEDS: levoTHYROXINE 88mcg tablet PO SCH (07:37)
[2019-03-03] MEDS: lactobacillus rhamnosus 10,000 MMU CELLS/CAPSULE PO SCH ×2 (07:37→20:00)
[2019-03-03] MEDS: enoxaparin 40mg/0.4ml syringe SQ SCH (07:37)
[2019-03-03] MEDS: carvedilol 6.25mg tablet PO SCH ×2 (07:37→19:59)
[2019-03-03] MEDS: pantoprazole 40mg Tablet.DR PO SCH (07:37)
[2019-03-03] MEDS: K and/or MAG REPLACEMENT MC SCH (07:57)
[2019-03-03] MEDS: gabapentin 300mg capsule PO SCH (07:58)
[2019-03-03 11:00] VITALS: BP 138/42
[2019-03-03] MEDS: lactose-reduced food (Ensure Enlive) - 237ml bottle PO SCH ×2 (12:54→17:53)
[2019-03-03] MEDS: fentaNYL 75 MCG/hour patch.TD72 TD SCH (12:57)
[2019-03-03 18:00] VITALS: BP 140/67
--- NOTE | 2019-03-03 18:12 | NUR ---
Patient in room PCU 3022. I have received report from Prasanna VALLADARES and had the opportunity to ask questions and assume patient care.
--- NOTE | 2019-03-03 18:14 | NUR ---
Problems reprioritized. Patient report given, questions answered & plan of care reviewed with JACQUELYN Buitrago.
[2019-03-03 23:00] VITALS: BP 145/62
[2019-03-04 02:00] VITALS: BP 150/62
[2019-03-04] MEDS: morphine 2 MG/ML inj. syringe IV PRN ×4 (02:06→23:41)
[2019-03-04] MEDS: ondansetron/PF 4mg/2ml inj IV PRN ×3 (03:31→23:49)
[2019-03-04 06:00] VITALS: BP 146/68
--- NOTE | 2019-03-04 06:10 | NUR ---
Problems reprioritized. Patient report given, questions answered & plan of care reviewed with Delmis RN.
--- NOTE | 2019-03-04 06:11 | NUR ---
Patient in room PCU 3022. I have received report from JACQUELYN Buitrago and had the opportunity to ask questions and assume patient care.
--- NOTE | 2019-03-04 06:43 | NUR ---
Problems reprioritized. Patient report given, questions answered & plan of care reviewed with Delmis RN.
[2019-03-04] MEDS ORDERED: VANCOMYCIN LEVEL IV ONE ×2 (07:30→19:30)
[2019-03-04] MEDS: levoTHYROXINE 88mcg tablet PO SCH (07:48)
[2019-03-04] MEDS: gabapentin 300mg capsule PO SCH ×2 (07:48→08:00)
[2019-03-04] MEDS: pantoprazole 40mg Tablet.DR PO SCH (07:48)
[2019-03-04] MEDS: enoxaparin 40mg/0.4ml syringe SQ SCH (07:48)
[2019-03-04] MEDS: lactobacillus rhamnosus 10,000 MMU CELLS/CAPSULE PO SCH ×2 (07:48→19:58)
[2019-03-04] MEDS: bisacodyl 5mg tablet.DR PO SCH ×2 (07:48→19:58)
[2019-03-04] MEDS: carvedilol 6.25mg tablet PO SCH ×2 (07:48→19:58)
[2019-03-04] MEDS: K and/or MAG REPLACEMENT MC SCH (08:00)
--- NOTE | 2019-03-04 08:04 | NUR ---
Gabapentin not given. Pt states she had a reaction: rash and GI problems.
[2019-03-04 10:38] LABS: BASOPHILS % (AUTO) 0.3 % (0-1); EOSINOPHILS # (AUTO) 0.1 X10'3 (0-0.9); EOSINOPHILS % (AUTO) 0.7 % (0-6); HEMATOCRIT 35.4 % (35.0-45.0); HEMOGLOBIN 12.1 g/dl (12.0-16.0); LYMPHOCYTES # (AUTO) 1.2 X10'3 (1.1-4.8); LYMPHOCYTES % (AUTO) 13.1 % (21-51); MEAN CORPUSCULAR HEMOGLOBIN 30.9 PG (27.0-31.0); MEAN CORPUSCULAR HGB CONC 34.1 g/dL (33.0-36.5); MEAN CORPUSCULAR VOLUME 90.6 FL (78-98); MEAN PLATELET VOLUME 8.2 FL (7.4-10.4); MONOCYTES # (AUTO) 0.7 X10'3 (0-0.9); MONOCYTES % (AUTO) 7.2 % (2-12); NEUTROPHILS # (AUTO) 7.3 X10'3 (1.8-7.7); NEUTROPHILS % (AUTO) 78.7 % (42-75); PLATELET COUNT 339 X10'3 (140-440); RED BLOOD COUNT 3.91 X10'6 (4.20-5.60); RED CELL DISTRIBUTION WIDTH 14.1 % (11.5-14.5); WHITE BLOOD COUNT 9.3 X10'3 (4.5-11.0)
[2019-03-04 10:50] LABS: ALANINE AMINOTRANSFERASE 28 U/L (12-78); ALBUMIN/GLOBULIN RATIO 0.5 (1.1-1.5); ALKALINE PHOSPHATASE 105 IU/L (46-116); ANION GAP 6 (8-16); ASPARTATE AMINO TRANSFERASE 23 U/L (10-37); BILIRUBIN,TOTAL 0.3 MG/DL (0.1-1.0); BLOOD UREA NITROGEN 15 MG/DL (7-18); BUN/CREATININE RATIO 21.4 (6.6-38.0); CALCIUM 8.8 MG/DL (8.5-10.1); CHLORIDE 105 MMOL/L (99-107); GLUCOSE 101 MG/DL (70-104); POTASSIUM 3.7 MMOL/L (3.5-5.1); SODIUM 141 MMOL/L (135-145); TOTAL CARBON DIOXIDE 30.3 MMOL/L (24-32); TOTAL PROTEIN 6.2 G/DL (6.4-8.2); eGFR 83 ML/MIN
[2019-03-04 11:00] VITALS: BP 151/72
--- NOTE | 2019-03-04 11:39 | NUR ---
Critical value given by lab: Vanco trough 54. The trough was drawn after the vanco had initiated. Called pharmacy to inform them, Doris stated she will get another vanco trough later.
--- NOTE | 2019-03-04 11:53 | NUR ---
Vanco trough critical value of 54; however, trough was drawn after initiating vanco IV. Informed Doris in pharmacy, she stated she will retime the vanco trough. Addendum: 03/04/19 at 1154 by Delmis Ramos RN previous note did not update. this is a duplicate note.
[2019-03-04] MEDS: lactose-reduced food (Ensure Enlive) - 237ml bottle PO SCH ×2 (12:37→17:42)
[2019-03-04 15:00] VITALS: BP 128/60
--- NOTE | 2019-03-04 15:14 | NUR ---
Reassessment: Pt PO 25-50% avg regular diet w/ 0% ONS so far not meeting needs given DX. LBM 02/27 receiving dulcolax BID but also hx chronic pain syndrome. MoM PRN ordered; RD d/w RN/MD regarding change to routine per MD approval. Pt hesitant to take MoM if mint flavor; not mint flavor per pharmacy. Pt agrees to chopped meats w/ gravy, sugar packet x4 at breakfast, string cheesex2 at dinner for high protein snack, dislikes dinner rolls, and would like spinach salad BIDLD. Dietary notified. Pt hx hiatal hernia repair and reports cannot eat much each meal. Pt was drinking ONS during RD visit. Will continue to monitor for additional protein needs. Rec: 1. continue regular diet; soft to chew foods 2. chocolate/strawberry ensure enlive BIDLD; cottage cheese and fruit w/ breakfasts 3. honor pt additional food preferences; see above 4. routine bowel care 5. wt per rx Addendum: 03/04/19 at [address] Amended: Links added.
--- NOTE | 2019-03-04 18:28 | NUR ---
Problems reprioritized. Patient report given, questions answered & plan of care reviewed with JACQUELYN Buitrago.
[2019-03-04 19:00] VITALS: BP 152/71
[2019-03-04] MEDS ORDERED: methylnaltrexone br 12mg/0.6ml inj***SubQ only SQ SCH (20:00)
--- NOTE | 2019-03-04 20:08 | NUR ---
[facility] is 24.1, called pharmacy and he wants to hold this doese at 1999 and continue with the next one
--- NOTE | 2019-03-04 20:24 | NUR ---
notified Dr. [facility] critical vanco trough and pharmacist wants to hokd the dose of Vacomycin @1999, is okay with it as long as Pharmacy is managing the doses
[2019-03-04 22:00] VITALS: BP 139/61
[2019-03-05 02:00] VITALS: BP 133/61
[2019-03-05] MEDS: morphine 2 MG/ML inj. syringe IV PRN ×2 (04:52→14:30)
[2019-03-05 06:00] VITALS: BP 148/55
[2019-03-05 06:19] LABS: BASOPHILS % (AUTO) 0.4 % (0-1); EOSINOPHILS # (AUTO) 0.1 X10'3 (0-0.9); EOSINOPHILS % (AUTO) 0.7 % (0-6); HEMATOCRIT 33.4 % (35.0-45.0); HEMOGLOBIN 11.5 g/dl (12.0-16.0); LYMPHOCYTES # (AUTO) 1.4 X10'3 (1.1-4.8); LYMPHOCYTES % (AUTO) 17.3 % (21-51); MEAN CORPUSCULAR HEMOGLOBIN 31.2 PG (27.0-31.0); MEAN CORPUSCULAR HGB CONC 34.5 g/dL (33.0-36.5); MEAN CORPUSCULAR VOLUME 90.3 FL (78-98); MEAN PLATELET VOLUME 8.7 FL (7.4-10.4); MONOCYTES # (AUTO) 0.6 X10'3 (0-0.9); NEUTROPHILS # (AUTO) 6.2 X10'3 (1.8-7.7); NEUTROPHILS % (AUTO) 74.6 % (42-75); PLATELET COUNT 345 X10'3 (140-440); WHITE BLOOD COUNT 8.3 X10'3 (4.5-11.0)
--- NOTE | 2019-03-05 06:21 | NUR ---
Patient in room PCU 3022. I have received report from JACQUELYN Buitrago and had the opportunity to ask questions and assume patient care.
--- NOTE | 2019-03-05 06:23 | NUR ---
Problems reprioritized. Patient report given, questions answered & plan of care reviewed with Delmis RN.
[2019-03-05 06:25] LABS: ALANINE AMINOTRANSFERASE 17 U/L (12-78); ALBUMIN/GLOBULIN RATIO 0.5 (1.1-1.5); ALKALINE PHOSPHATASE 99 IU/L (46-116); ANION GAP 10 (8-16); ASPARTATE AMINO TRANSFERASE 21 U/L (10-37); BILIRUBIN,TOTAL 0.4 MG/DL (0.1-1.0); BLOOD UREA NITROGEN 22 MG/DL (7-18); BUN/CREATININE RATIO 25.6 (6.6-38.0); CALCIUM 8.8 MG/DL (8.5-10.1); CHLORIDE 103 MMOL/L (99-107); CREATININE 0.86 MG/DL (0.40-0.90); GLUCOSE 99 MG/DL (70-104); SODIUM 140 MMOL/L (135-145); TOTAL CARBON DIOXIDE 27.5 MMOL/L (24-32); TOTAL PROTEIN 6.2 G/DL (6.4-8.2); eGFR 65 ML/MIN
[2019-03-05 06:28] LABS: POTASSIUM 4.3 MMOL/L (3.5-5.1)
[2019-03-05] MEDS: K and/or MAG REPLACEMENT MC SCH (08:00)
[2019-03-05] MEDS ORDERED: magnesium hydroxide 30ml (MOM) UD suspension PO SCH (08:00)
[2019-03-05] MEDS: gabapentin 300mg capsule PO SCH (08:00)
[2019-03-05] MEDS: enoxaparin 40mg/0.4ml syringe SQ SCH (08:03)
[2019-03-05] MEDS: bisacodyl 5mg tablet.DR PO SCH (08:04)
[2019-03-05] MEDS: levoTHYROXINE 88mcg tablet PO SCH (08:04)
[2019-03-05] MEDS: pantoprazole 40mg Tablet.DR PO SCH (08:04)
[2019-03-05] MEDS: lactobacillus rhamnosus 10,000 MMU CELLS/CAPSULE PO SCH (08:04)
[2019-03-05] MEDS: carvedilol 6.25mg tablet PO SCH (08:04)
--- NOTE | 2019-03-05 08:47 | NUR ---
Sent to Dr Morataya PAGER ID: [phone] MESSAGE: RE: Glory Schumacher [phone]. All ready for PICC placement, just need the consent signed by you please -Delmis [id number]
[2019-03-05] MEDS: lactose-reduced food (Ensure Enlive) - 237ml bottle PO SCH (12:37)
[2019-03-05] MEDS: ondansetron/PF 4mg/2ml inj IV PRN (14:30)
--- NOTE | 2019-03-05 14:50 | NUR ---
Pt discharged to [facility]. Extended IV d/c'd, tele removed, all belongings sent with pt. Packet given to [employer] personnel. Pt wheeled down and left in [employer] [facility]. Son left with pt.
[2019-03-05] MEDS ORDERED: vancomycin/NS 1 GM ADD-VANTAGE 250 ML IV SCH (20:00)
[2019-03-07] MEDS ORDERED: VANCOMYCIN LEVEL IV ONE (07:30)
== END 2019-03-05 14:47 | DRG 871 ==
LOC: ER 23:18 → ED HOLD 02-24 01:44 → ORTHO 4S 02-24 03:05 → PCU 3S 03-01 02:55
PROVIDERS: ADMIT Hospitalist; ATTEND Family Medicine
PROC: BQ31YZZ Magnetic Resonance Imaging (MRI) of Left Hip using Other Contrast (ICD-10-PCS; 2019-02-27)
PROC: 02HV33Z Insertion of Infusion Device into Superior Vena Cava, Percutaneous Approach (ICD-10-PCS; principal; 2019-03-05)
PROC: B548ZZA Ultrasonography of Superior Vena Cava, Guidance (ICD-10-PCS; 2019-03-05)
DX: A41.02 Sepsis due to Methicillin resistant Staphylococcus aureus (principal); E43 Unspecified severe protein-calorie malnutrition; N17.0 Acute kidney failure with tubular necrosis; N39.0 Urinary tract infection, site not specified; I47.1 Supraventricular tachycardia; M00.9 Pyogenic arthritis, unspecified; M54.9 Dorsalgia, unspecified; E86.0 Dehydration; G89.4 Chronic pain syndrome; E87.6 Hypokalemia; I34.0 Nonrheumatic mitral (valve) insufficiency; K59.00 Constipation, unspecified; M46.1 Sacroiliitis, not elsewhere classified; Z79.891 Long term (current) use of opiate analgesic; Z88.1 Allergy status to other antibiotic agents; Z90.710 Acquired absence of both cervix and uterus; Z88.2 Allergy status to sulfonamides; Z88.8 Allergy status to other drugs, medicaments and biological substances; Z91.041 Radiographic dye allergy status; Z90.49 Acquired absence of other specified parts of digestive tract; Z68.22 Body mass index [BMI] 22.0-22.9, adult
CPT/HCPCS: 36415; 36569; 73502; 73723; 76937; 80048; 80053; 80202; 80305; 80320; 81001; 83605; 83735; 84132; 84145; 84443; 85025; 85651; 86140; 87040; 87077; 87081; 87088; 87186; 93005; 93306; 97110; 97116; 97162; 97530; 97535; 99285; G0378; J0696; J1650; J1885; J2212; J2270; J2405; J3010; J3370; J7030